=== PATIENT | male | born 2005 | race Caucasian/White ===

== ENCOUNTER 2024-01-30 23:36 | Emergency (ER) | payer OTHER ==
[~2024-01-30] VITALS: Ht 188 cm; Wt 84.1 kg
[2024-01-30 23:41] VITALS: TEMP 98.2
[2024-01-30] MEDS ORDERED: Fluorescein 1 MG STRIP OP ONE (23:45)
[2024-01-30] MEDS ORDERED: Tetracaine 0.5% Ophth Soln 4 ML BOTTLE OP ONE (23:45)
[2024-01-31] MEDS ORDERED: ILOTYCIN5 MG/GM OP (00:21)
[2024-01-31 00:33] VITALS: BP 138/82; PULSE 93
== END 2024-01-31 00:30 | disposition home or self-care (01) ==
LOC: COL.ER 23:36
DX: S05.01XA Injury of conjunctiva and corneal abrasion without foreign body, right eye, initial encounter (principal); X12.XXXA Contact with other hot fluids, initial encounter; Y93.89 Activity, other specified